=== PATIENT | male | born 1980 | race Two or more races ===

== ENCOUNTER 2017-01-20 19:20 | Emergency (ER) | payer OTHER ==
[2017-01-21 00:02] VITALS: BP 142/91
== END 2017-01-21 00:02 | disposition home or self-care (01) ==
LOC: ED 19:20
DX: S61.211A Laceration without foreign body of left index finger without damage to nail, initial encounter (principal); W26.0XXA Contact with knife, initial encounter; Y93.89 Activity, other specified; Y92.89 Other specified places as the place of occurrence of the external cause; Y99.8 Other external cause status
CPT/HCPCS: J2001

== ENCOUNTER 2020-03-04 15:33 | Emergency (ER) | payer OTHER, SELFPAY ==
[~2020-03-04] VITALS: Ht 167.6 cm; Wt 72.6 kg
[2020-03-04 16:03] VITALS: BP 116/76; Ht 167.6 cm; Wt 72.6 kg
== END 2020-03-04 18:05 | disposition home or self-care (01) ==
LOC: ED 15:33
DX: U07.1 COVID-19 (principal)
CPT/HCPCS: U0003